=== PATIENT | male | born 1960 | race Caucasian/White ===

== ENCOUNTER 2016-09-07 12:19 | Emergency (ER) | payer OTHER ==
[~2016-09-07] VITALS: Ht 175.3 cm; Wt 81.8 kg
[~2016-09-07 12:19] MED LIST: LISI-571 PO
[2016-09-07 12:21] VITALS: BP 170/103; PULSE 105; RESP 15; O2SAT 96
--- NOTE | 2016-09-07 12:45 | ED.REPORT ---
HPI-Chest Pain 40 and Over Date of Service Sep 07, 2016 ED Provider: Rajat Daniels MD 56 y/o male with a hx of HTN and CHF presents to the ED complaining of chest pain with deep breathing, onset 2 months ago. Associated sx include coughing up blood intermittently. He denies chills, fever and diaphoresis. As per the , the pt is a "raging alcoholic" and gets severely sick upon withdrawing. His last drink was this morning. They also report intermittent bleeding from the bowels over many years. 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 Nursing Notes Stated Complaint: CHEST PAIN/SPITTING UP BLOOD Chief Complaint: Chest Pain Nursing Notes Reviewed: Yes Allergies: Coded Allergies: Penicillins (Verified Allergy, Unknown, UNKNOWN, 09/07/16) General Time Seen by MD: 12:45 Chief Complaint Chest pain Hx Obtained From: Patient Arrived By: Walk-in Sudden in Onset?: Yes Onset Occurred: More than a week ago... (2 months) Symptom Duration: Since onset Location: : Substernal Quality: Painful Radiation: : Does not radiate Severity: Current: Mild Severity: Maximum: Mild Recent Healthcare: No recent doctor visit Similar Sx Previous: No Past Medical History Past Medical History HTN Congestive heart failure Hyperlipidemia mild mitral regurg echo 06/19/2014 Hepatitis C GERD Hiatal hernia Past Surgical History Incarcerated Ventral Hernia 07/2014 Jaw surgery Tonsillectomy Right inguinal hernia repair Smoking History Never Smoker Social History Alcohol Use: >5 per day Drug Use: Denies drug use Other Social History: Good social support Ambulatory Status Independent Review of Systems Constitutional: Denies: Chills, Fever Respiratory: Reports: Prod cough, bloody Cardiovascular: Reports: Chest pain (only with deep breathing) Skin: Denies Diaphoresis Complete sys rev & neg: except as marked. Physical Exam Initial Vital Signs Vital Signs (First) Date Time Temp Pulse Resp B/P Pulse Ox O2 Delivery O2 Flow Rate FiO2 09/07/16 12:21 36.9 105 15 170/103 96 Room Air Initial VS: Reviewed Head / Eyes: Atraumatic, Normocephalic Neck: Full range of motion Extremities: Vascular intact, Neuro intact, No swelling, No tenderness Skin: Warm, Dry, No cyanosis Neurologic: Alert, Oriented, Nonfocal General/Constitutional: Awake, Alert, No acute distress, Cooperative Respiratory / Chest: Atraumatic, Breath sounds NL, No respiratory distress, No wheezing Cardiovascular: Regular rhythm, Heart sounds NL, No murmurs, No rubs Heart Rate / Rhythm: Positive: Tachycardia Abdomen: Atraumatic, Soft Interpretation & Diagnostics Lab Results Interpretation Result Diagram: 09/07/16 1240 09/07/16 1240 Test 09/07/16 12:40 White Blood Count 6.8th/mm3 (3.8-10.1) Red Blood Count 4.67mil/mm3 (4.40-5.80) Hemoglobin 14.6g/dL (13.8-17.2) Hematocrit 42.5% (41.0-50.0) Mean Corpuscular Volume 91.0fL (81-100) Mean Corpuscular Hemoglobin 31.3pg (27.0-35.0) Mean Corpuscular Hemoglobin Concent 34.4% (32.0-37.0) Red Cell Distribution Width 13.3% (12.3-15.4) Platelet Count 213bil/L (150-400) Neutrophils (%) (Auto) 69.1% (40-74) Lymphocytes (%) (Auto) 25.7% (14-46) Monocytes (%) (Auto) 4.1% (4-12) Eosinophils (%) (Auto) 0.3% (0-5) Basophils (%) (Auto) 0.7% (0-3) Sodium Level 134mEq/L (134-144) Potassium Level 3.8mEq/L (3.5-5.2) Chloride Level 93mEq/L (97-108) Carbon Dioxide Level 19mmol/L (18-29) Blood Urea Nitrogen 9mg/dL (6-24) Creatinine 0.72mg/dL (0.76-1.27) Estimat Glomerular Filtration Rate 120mL/min (>59) Glucose Level 119mg/dL (60-99) Calcium Level 9.0mg/dL (8.5-10.1) Magnesium Level 1.8mg/dL (1.6-2.6) Total Bilirubin 0.9mg/dL (0.0-1.2) Aspartate Amino Transf (AST/SGOT) 100U/L (0-50) Alanine Aminotransferase (ALT/SGPT) 99U/L (0-44) Alkaline Phosphatase 55U/L (25-150) Troponin T < 0.010ug/L (0.0-0.011) Total Protein 8.0g/dL (6.4-8.4) Albumin 4.2g/dL (3.4-5.0) Hold Castro Top Tube Received (Received) ECG Interpretation ECG Interpretation: Sinus tachycardia. Rate 105. Imcomplete left bundle branch block. Time: 12:30 Interpreted by: ED physician X-Ray Chest Interpretation Chest Xray Interpretation: IMPRESSION: Negative chest. No acute cardiopulmonary process is evident. Dictated by: Jorge Mccloud M.D. on 09/07/2016 at 12:18 Approved by: Jorge Mccloud M.D. on 09/07/2016 at 12:19 View: Portable, AP & lat Interpretation / Wet Read by: Interpret - Radiologist Re-Eval/Medical Decision Med Decision/Clinical Course I chose not to follow up on the complaint of GI bleeding because of its chronicity and his normal vital signs and no orthostatic changes or symptoms. I think it is appropriate for him to follow up with his primary care doctor about this. Time of Eval: 13:59 Patient Status: Condition improved Re-Evaluation/Progress Note: Rechecked pt. Discussed lab results, imaging results, diagnosis and plan to discharge. Pt understands and agrees with the plan. F/U instructions and RTER warning given. All questions addressed. Counseled Regarding: Diagnosis, Lab results, Need for follow-up, When/why to return to ED Discharge & Departure Primary Impression: Chest pain Chest pain type: precordial pain Qualified Code: R07.2 - Precordial pain Disposition: Home Discharge Condition All VS Reviewed: Yes Patient Instructions: Chest Pain (ED) Additional Instructions: No dangerous cause for your chest pain is discovered today. I recommend follow- up with Dr. Rodriges in the coming days to continue investigation of the problems you named. Specifically: Right-sided chest pain. Very dark/bloody stools. Hypertension. Alcohol excess. Referrals: Janelle Rodriges MD (PCP) Scribe Attestation Portions of this note were transcribed by Cisco Leiva. I, , personally performed the history, physical exam and medical decision-making;I reviewed and confirmed the accuracy of the information in the transcribed note. Signed by Nacho Zuñiga. 09/07/16 14:06 copies to: Janelle Rodriges MD, Kirk H MD Sep 07, 2016 12:45 Cisco Leiva Sep 07, 2016 12:52
[2016-09-07 13:04] LABS: BASOPHILS % (AUTO) 0.7 % (0-3); EOSINOPHILS % (AUTO) 0.3 % (0-5); MONOCYTES % (AUTO) 4.1 % (4-12); Mean Corpuscular Hemoglobin 31.3 pg (27.0-35.0); NEUTROPHILS % (AUTO) 69.1 % (40-74); Platelet Count 213 bil/L (150-400)
--- NOTE | 2016-09-07 13:20 | DRSVH ---
PROCEDURE: X-RAY CHEST, TWO VIEWS ([id number]) INDICATIONS: CHEST PAIN TECHNIQUE: 2 views of the chest were acquired. COMPARISON: [facility], CR, CHEST 1VW, 06/22/2012, 13:16. FINDINGS: Surgical changes and devices: None. Lungs and pleura: No pleural effusions or pneumothorax. Lungs are clear. Mediastinum: Mediastinal contours are normal. Heart size is normal. Bones and chest wall: No suspicious bony abnormalities. Older/healed right-sided rib fractures are present. Soft tissues appear unremarkable. IMPRESSION: Negative chest. No acute cardiopulmonary process is evident. Dictated by: Jorge Mccloud M.D. on 09/07/2016 at 12:18 Approved by: Jorge Mccloud M.D. on 09/07/2016 at 12:19
[2016-09-07 13:32] LABS: TROPONIN T < 0.010 ug/L (0.0-0.011)
[2016-09-07 13:33] LABS: Magnesium 1.8 mg/dL (1.6-2.6)
[2016-09-07 13:53] VITALS: BP 178/109; PULSE 107; RESP 20; O2SAT 94
[2016-09-07 13:58] VITALS: BP 168/94; PULSE 98
[2016-09-07 14:20] VITALS: BP 168/94; PULSE 98; RESP 20; O2SAT 94
== END 2016-09-07 14:15 | disposition home or self-care (01) ==
LOC: SED 12:19
DX: R07.2 Precordial pain (principal); I11.0 Hypertensive heart disease with heart failure; I50.9 Heart failure, unspecified; K21.9 Gastro-esophageal reflux disease without esophagitis; E78.5 Hyperlipidemia, unspecified; Z88.0 Allergy status to penicillin